=== PATIENT | male | born 1950 | race Caucasian/White ===

== ENCOUNTER 2021-06-12 11:12 | Inpatient (IN) | payer OTHER ==
[~2021-06-12] VITALS: Ht 172.7 cm; Wt 74.8 kg
[2021-06-12] MEDS ORDERED: IV NORMAL SALINE 1000 ML BAG IV ONE (11:45)
[2021-06-12] MEDS ORDERED: ESCI-9 PO (11:54)
[2021-06-12] MEDS ORDERED: FERR325T28 PO (11:54)
[2021-06-12] MEDS ORDERED: CHOL2000 PO (11:54)
[2021-06-12] MEDS ORDERED: ASPI81TA31 PO (11:54)
[2021-06-12] MEDS ORDERED: TAMS-3 PO (11:54)
[2021-06-12] MEDS ORDERED: PROC10TA13 PO (11:54)
[2021-06-12] MEDS ORDERED: LISI20TA30 PO (11:54)
[2021-06-12] MEDS ORDERED: ATOR20TA PO (11:54)
[2021-06-12] MEDS ORDERED: METF-494 PO (11:54)
[2021-06-12] MEDS ORDERED: GLIP5TAB13 PO (11:54)
[2021-06-12] MEDS ORDERED: LEVE500T20 PO (11:54)
[2021-06-12] MEDS ORDERED: METF-440 PO (11:54)
[2021-06-12 12:05] LABS: HEMATOCRIT 28.4 % (36.7-47.1); MEAN CORPUSCULAR HEMOGLOBIN 31.8 uug (23.8-33.4); MEAN CORPUSCULAR VOLUME 94.3 fL (73.0-96.2); PLATELET COUNT (AUTO) 184 K/uL (152-348)
[2021-06-12 12:14] LABS: ETHANOL < 3 MG/DL (0-0)
[2021-06-12 12:18] LABS: ALANINE AMINOTRANSFERASE 14 U/L (16-63); ALKALINE PHOSPHATASE 89 U/L (50-136); ASPARTATE AMINOTRANSFERASE 9 U/L (15-37); BILIRUBIN,DIRECT 0.2 mg/dL (0.0-0.2); BILIRUBIN,TOTAL 0.4 mg/dL (0.2-1.0); CARBON DIOXIDE 25 mmol/L (21-32); CHLORIDE 99 mmol/L (98-107); GLUCOSE 152 mg/dL (74-106); POTASSIUM 5.4 mmol/L (3.5-5.1); TOTAL PROTEIN, SERUM 6.4 g/dL (6.4-8.2)
[2021-06-12 12:20] LABS: ACETAMINOPHEN < 2.0 ug/mL (10-30)
[2021-06-12 12:21] LABS: UREA NITROGEN, BLOOD 101 mg/dL (7-18)
[2021-06-12] MEDS ORDERED: CEFTRIAXONE 1 G in IV DEXTROSE 5% 50 ML IV ONE (12:30)
[2021-06-12] MEDS ORDERED: METRONIDAZOLE 500 MG/NS 100 ML PIGGYBACK IV ONE (12:30)
[2021-06-12] MEDS ORDERED: IV NORMAL SALINE 100 ML BAG IV ONE ×2 (12:30→17:00)
[2021-06-12] MEDS ORDERED: CEFTRIAXONE /D5W 50ML IVPB **ER PYXIS IV ONE (12:43)
[2021-06-12] MEDS ORDERED: METRONIDAZOLE 500 MG/NS 100ML 100 ML IV ONE (12:44)
[2021-06-12 13:02] LABS: THYROID STIMULATING HORMONE 0.337 mIU/mL (0.358-3.740)
--- NOTE | 2021-06-12 13:02 | NUR ---
PT IS IN ROOM #1A. DR PEREZ EVALUATED THE PT.
[2021-06-12 13:27] LABS: *BILIRUBIN,URIN 1+ (NEGATIVE); *BLOOD, URINE 1+ (NEGATIVE); *CLARITY,URINE CLEAR (CLEAR); *COLOR,URINE YELLOW (YELLOW); *KETONES,URINE NEGATIVE (NEGATIVE); *UROBILINOGEN,URINE 0.2 E.U./dl (NORMAL); LEUKOCYTE ESTERASE ,URINE 2+ (NEGATIVE); NITRITE, URINE NEGATIVE (NEGATIVE); UGLUCOSE NEGATIVE (NEGATIVE)
[2021-06-12] MEDS ORDERED: CALCIUM GLUCONATE IV 1 GM in IV DEXTROSE 5% 50 ML IV ONE (13:30)
[2021-06-12] MEDS ORDERED: FUROSEMIDE 20 MG/2 ML VIAL IVP ONE (13:30)
[2021-06-12] MEDS ORDERED: DEXTROSE 50% 50 ML DISP.SYRIN IV ONE ×2 (13:30→17:15)
[2021-06-12] MEDS ORDERED: SODIUM POLYSTYRENE SULFONATE 15 G/60 ML LIQUID UDC PO ONE (13:30)
[2021-06-12] MEDS ORDERED: INSULIN REGULAR, HUMAN 300 UNIT/3 ML VIAL IV ONE (13:30)
[2021-06-12 13:37] LABS: *AMPHETAMINE, URINE NEGATIVE (NEGATIVE); *CANNABINOID, URINE NEGATIVE (NEGATIVE); *COCCAINE, URINE NEGATIVE (NEGATIVE); *OPIATE, URINE NEGATIVE (NEGATIVE); *PHENCYCLIDINE SCREEN,URINE NEGATIVE (NEGATIVE)
[2021-06-12] MEDS ORDERED: CALCIUM GLUCONATE 1 GM/10 ML VIAL IV ONE (13:47)
[2021-06-12] MEDS ORDERED: INSULIN REGULAR, HUMAN 300 UNIT/3 ML VIAL ONE (13:48)
[2021-06-12] MEDS ORDERED: DEXTROSE 50% 50 ML DISP.SYRIN ONE ×2 (13:48→16:58)
[2021-06-12] MEDS ORDERED: FUROSEMIDE 20 MG/2 ML VIAL ONE (13:50)
[2021-06-12] MEDS ORDERED: SODIUM POLYSTYRENE SULFONATE 15 G/60 ML LIQUID UDC ONE (13:50)
[2021-06-12 16:16] LABS: BACTERIA,URINE MODERATE /HPF (NONE SEEN); SQUAMOUS EPITHELIAL CELL,UR FEW /HPF (NONE SEEN); URINE AMORPHOUS URATE MANY /HPF; WBC,URINE TNTC /HPF (0-3)
--- NOTE | 2021-06-12 17:12 | NUR ---
REPORT WAS GIVEN TO DEPARTMENTAL SHIPPING CLERK. PT WAS TRANSFERED TO ROOM #310.
[2021-06-12 18:27] VITALS: BP 107/58
--- NOTE | 2021-06-12 18:27 | NUR ---
Admitted to telemetry dx: ams, sepsis, renal failure. alert and oriented x1. no s/sx of pain. on 2lpm nc, no resp distress. sinus tachy on monitor 104 heart rate. pt kept comfortable. bed low and locked. siderails up. belongings list done. dr. bardales aware.
--- NOTE | 2021-06-12 19:50 | NUR ---
PATIENT ALERT TO NAME, NO SOB NO CHEST PAIN, TELE MONITOR SINUS RHYTHM AT THIS TIME, NO COMPLAIN OF PAIN, TURN AND REPOSITION, KEPT CLEAN AND DRY. CONT TO MONITOR.
[2021-06-12] MEDS ORDERED: ONDANSETRON 4 MG/2 ML VIAL IV PRN (20:00)
[2021-06-12] MEDS ORDERED: ACETAMINOPHEN 650 MG SUPP.RECT RC PRN (20:00)
[2021-06-12] MEDS ORDERED: MORPHINE SULFATE 2 MG/1 ML DISP.SYRIN IV PRN (20:00)
[2021-06-12] MEDS ORDERED: VANCOMYCIN IV 750 MG in IV DEXTROSE 5% 250 ML IV SCH (20:15)
[2021-06-12 20:18] VITALS: BP 100/49
[2021-06-12] MEDS: PIPERACILLIN/TAZO 2.25 G in IV DEXTROSE 5% 50 ML IV SCH (21:10)
[2021-06-12] MEDS ORDERED: LORAZEPAM 2 MG/1 ML VIAL IV PRN (21:15)
[2021-06-12] MEDS: IV D5/ 0.9% NACL 1,000 ML IV PRN (22:39)
[2021-06-13 00:05] VITALS: BP 91/45
[2021-06-13] MEDS: PIPERACILLIN/TAZO 2.25 G in IV DEXTROSE 5% 50 ML IV SCH ×4 (02:57→20:20)
[2021-06-13 04:03] VITALS: BP 107/51
[2021-06-13 06:21] LABS: HEMATOCRIT 23.8 % (36.7-47.1); MEAN CORPUSCULAR HEMOGLOBIN 32.3 uug (23.8-33.4); MEAN CORPUSCULAR VOLUME 92.2 fL (73.0-96.2); PLATELET COUNT (AUTO) 145 K/uL (152-348)
--- NOTE | 2021-06-13 06:27 | NUR ---
PATIENT ASLEEP BUT AROUSABLE, NO SOB NO CHEST PAIN, TELE MONITOR SINUS RHYTHM, REQUEST TOTAL ASSIST WITH ADL'S, KEPT CLEAN AND DRY. KEPT CLEAN AND DRY. CONT TO MONITOR.
[2021-06-13 06:38] LABS: ALANINE AMINOTRANSFERASE 13 U/L (16-63); ALKALINE PHOSPHATASE 77 U/L (50-136); ASPARTATE AMINOTRANSFERASE 10 U/L (15-37); BILIRUBIN,TOTAL 0.3 mg/dL (0.2-1.0); CARBON DIOXIDE 26 mmol/L (21-32); CHLORIDE 109 mmol/L (98-107); CHOLESTEROL 85 mg/dL (<200); CREATININE 3.7 mg/dL (0.6-1.3); GLUCOSE 135 mg/dL (74-106); HDL CHOLESTEROL 31 mg/dL (40-60); MAGNESIUM 1.8 mg/dL (1.8-2.4); PHOSPHOROUS 3.6 mg/dL (2.5-4.9); POTASSIUM 4.6 mmol/L (3.5-5.1); TOTAL PROTEIN, SERUM 5.4 g/dL (6.4-8.2); TRIGLYCERIDES 105 MG/DL (30-150); UREA NITROGEN, BLOOD 69 mg/dL (7-18)
--- NOTE | 2021-06-13 07:56 | NUR ---
received awake. no acute distress. on 2lpm nc tolerated. no sob. iv intact fluids ongoing. sinus rhythm on tele monitor. safety measures ongoing. kept comfortable. call light in reach.
[2021-06-13] MEDS: PANTOPRAZOLE SODIUM 40 MG VIAL IV SCH (08:15)
--- NOTE | 2021-06-13 08:37 | NUR ---
spoke with some david and given update. per son, pt is dnr/dni and will fax over paperwork. charge nurse aware.
[2021-06-13] MEDS ORDERED: levETIRAcetam IV 500 MG in IV DEXTROSE 5% 100 ML IV SCH (09:00)
[2021-06-13 10:27] LABS: THYROID STIMULATING HORMONE 0.195 mIU/mL (0.358-3.740)
[2021-06-13] MEDS ORDERED: VANCOMYCIN IV 750 MG in IV DEXTROSE 5% 250 ML IV ONE (10:30)
[2021-06-13 11:46] VITALS: BP 111/48
[2021-06-13] MEDS ORDERED: Z GUARD REMEDY PASTE 57 GM TUBE TOP PRN (12:45)
--- NOTE | 2021-06-13 12:45 | NUR ---
WOUND CARE CONSULT: PT PRESENTS WITH SACRAL INTACT DEEP TISSUE INJURY, PRESENT ON ADMISSION. RECOMMENDATIONS MADE FOR SKIN PROTECTION. DISCUSSED WITH NURSING STAFF. PT IS INCONTINENT. IN AGREEMENT WITH PLAN OF CARE. Addendum: 06/13/21 at 1246 by CATA STALLINGS RN Amended: Links added.
[2021-06-13] MEDS: IV D5/ 0.9% NACL 1,000 ML IV PRN (14:33)
[2021-06-13 15:38] VITALS: BP 100/53
[2021-06-13] MEDS ORDERED: INSU100V28 (15:44)
--- NOTE | 2021-06-13 18:56 | NUR ---
awake and responsive. no acute distress. iv fluids tolerated. no seizures noted. on iv atb no adverse/allergic reaction noted. needs attended. kept comfortable. safety measures in place.
--- NOTE | 2021-06-13 19:30 | NUR ---
Receive patient lying in bed. AAOx1. In no acute distress. Denies any pain or SOB. O2 sat at 99% on RA. NSR on tele at 80/min. Iv site on right FA and left hand intact and patent. IVF infusing. Needs assessed and attended to. Safety measure initiated and call gold within reached.
[2021-06-13 20:05] VITALS: BP 116/35
[2021-06-13] MEDS: levETIRAcetam 500 MG TABLET PO SCH (20:20)
[2021-06-13] MEDS: TAMSULOSIN HCL 0.4 MG CAP.SR.24H PO SCH (20:20)
[2021-06-13] MEDS: Z GUARD REMEDY PASTE 57 GM TUBE TOP SCH (20:21)
[2021-06-14] VITALS: BP 116/59
[2021-06-14] MEDS: PIPERACILLIN/TAZO 2.25 G in IV DEXTROSE 5% 50 ML IV SCH ×2 (02:07→08:03)
[2021-06-14 04:10] VITALS: BP 117/57
[2021-06-14] MEDS: IV D5/ 0.9% NACL 1,000 ML IV PRN ×2 (05:11→23:41)
[2021-06-14 06:25] LABS: HEMATOCRIT 24.2 % (36.7-47.1); MEAN CORPUSCULAR HEMOGLOBIN 33.1 uug (23.8-33.4); MEAN CORPUSCULAR VOLUME 92.2 fL (73.0-96.2); PLATELET COUNT (AUTO) 141 K/uL (152-348)
--- NOTE | 2021-06-14 06:39 | NUR ---
AAOx1. Calm and comfortable. Denies any pain or SOB. O2 sat at 99% on RA. NSR on tele at 75/min. IV site on right FA intact and patent. IVF infusing. Needs attended to and met. Safety measure maintained and call gold within reached.
[2021-06-14] MEDS: glipiZIDE 5 MG TABLET PO SCH ×2 (06:46→16:23)
[2021-06-14 07:08] LABS: THYROID STIMULATING HORMONE 0.233 mIU/mL (0.358-3.740)
[2021-06-14 07:16] LABS: ALANINE AMINOTRANSFERASE 7 U/L (16-63); ALKALINE PHOSPHATASE 68 U/L (50-136); ASPARTATE AMINOTRANSFERASE 11 U/L (15-37); BILIRUBIN,TOTAL 0.6 mg/dL (0.2-1.0); CARBON DIOXIDE 27 mmol/L (21-32); CHLORIDE 108 mmol/L (98-107); CREATININE 1.9 mg/dL (0.6-1.3); GLUCOSE 171 mg/dL (74-106); MAGNESIUM 1.5 mg/dL (1.8-2.4); PHOSPHOROUS 2.4 mg/dL (2.5-4.9); POTASSIUM 4.3 mmol/L (3.5-5.1); TOTAL PROTEIN, SERUM 5.6 g/dL (6.4-8.2); UREA NITROGEN, BLOOD 31 mg/dL (7-18)
[2021-06-14] MEDS: levETIRAcetam 500 MG TABLET PO SCH ×2 (08:02→20:03)
[2021-06-14] MEDS: PANTOPRAZOLE SODIUM 40 MG VIAL IV SCH (08:02)
[2021-06-14] MEDS: Z GUARD REMEDY PASTE 57 GM TUBE TOP SCH ×2 (08:05→20:11)
[2021-06-14] MEDS ORDERED: NEUTRA PHOS PACKET PO ONE (09:00)
[2021-06-14] MEDS: MAGNESIUM SULFATE/D5W 100 ML IV SCH ×2 (09:53→11:39)
[2021-06-14] MEDS ORDERED: VANCOMYCIN IV 1,000 MG in IV DEXTROSE 5% 250 ML IV SCH (11:00)
[2021-06-14 11:24] VITALS: BP 111/44
[2021-06-14] MEDS ORDERED: PIPERACILLIN SODIUM/TAZOBACTAM 3.375 G in IV DEXTROSE 5% 50 ML IV SCH (15:00)
[2021-06-14 15:39] VITALS: BP 118/52
--- NOTE | 2021-06-14 18:21 | NUR ---
Patient resting in bed. AOx1, self. On room air. No signs of acute distress. NSR on threat monitoring analyst. Patient denies pain/ discomfort. Compliant with medications and care. Call light within reach. Bed alarm on. Will endorse to incoming shift for continuity of care.
[2021-06-14] MEDS: TAMSULOSIN HCL 0.4 MG CAP.SR.24H PO SCH (20:03)
[2021-06-14 20:20] VITALS: BP 125/52
[2021-06-15 00:05] VITALS: BP 123/42
[2021-06-15 03:22] LABS: *OCCULT BLOOD STOOL NEGATIVE (NEGATIVE)
[2021-06-15 04:25] VITALS: BP 116/42
--- NOTE | 2021-06-15 04:57 | NUR ---
Pt slept intermittently throughout the night. Denies pain or SOB. Had bowel movement X 1, sent to lab for stool OB. IV site patent. Safety and comfort provided. No other issues or concerns at this time, will endorse to day shift.
[2021-06-15 06:42] LABS: HEMATOCRIT 24.3 % (36.7-47.1); PLATELET COUNT (AUTO) 138 K/uL (152-348)
[2021-06-15] MEDS: PANTOPRAZOLE SODIUM 40 MG TABLET.DR PO SCH (06:47)
[2021-06-15] MEDS: glipiZIDE 5 MG TABLET PO SCH ×2 (06:47→15:40)
[2021-06-15 06:54] LABS: CREATININE 1.2 mg/dL (0.6-1.3); MAGNESIUM 1.6 mg/dL (1.8-2.4)
[2021-06-15 08:30] VITALS: BP 118/51
[2021-06-15] MEDS: Z GUARD REMEDY PASTE 57 GM TUBE TOP SCH ×2 (10:00→20:31)
[2021-06-15] MEDS ORDERED: MAGNESIUM OXIDE 400 MG TABLET PO ONE (10:00)
[2021-06-15] MEDS: GLUCERNA SHAKE 237 ML CAN PO SCH (10:00)
[2021-06-15] MEDS: levETIRAcetam 500 MG TABLET PO SCH ×2 (10:13→20:30)
[2021-06-15 11:10] VITALS: BP 118/51
[2021-06-15] MEDS: MUPIROCIN 2% OINT 22 GM TUBE NS SCH ×2 (15:11→20:30)
[2021-06-15 15:17] VITALS: BP 126/57
[2021-06-15] MEDS ORDERED: NEUTRA PHOS PACKET PO ONE (15:45)
[2021-06-15] MEDS: IV D5/ 0.9% NACL 1,000 ML IV PRN (15:53)
--- NOTE | 2021-06-15 18:25 | NUR ---
Pt stable throughout the shift. Mentation is improved. No s/s of acute distress. Pt has improved and increased PO intake. Wound care done per ordered. Repositioned for comfort. Vitals WNL on room air. Safety measures in place. Fall and seizure precaution maintained. Chart checks done. Will endorse to oncoming nurse.
[2021-06-15 20:27] VITALS: BP 143/62
[2021-06-15] MEDS: TAMSULOSIN HCL 0.4 MG CAP.SR.24H PO SCH (20:30)
[2021-06-16] VITALS: BP 133/56
[2021-06-16] MEDS: PANTOPRAZOLE SODIUM 40 MG TABLET.DR PO SCH (06:09)
--- NOTE | 2021-06-16 07:50 | NUR ---
Received patient resting in bed. AOx1. No signs of acute distress. Patient is on room air, denies SOB or discomfort Normal Sinus Rhythm on quality assurance monitor. IV on right wrist is patent and intact. Due medications were given and tolerated well. Safety and comfort measures maintained. Call light within reach.Will continue to monitor.
[2021-06-16] MEDS: glipiZIDE 5 MG TABLET PO SCH ×2 (08:54→16:11)
[2021-06-16] MEDS: levETIRAcetam 500 MG TABLET PO SCH (08:54)
[2021-06-16] MEDS: MUPIROCIN 2% OINT 22 GM TUBE NS SCH (08:57)
[2021-06-16] MEDS: GLUCERNA SHAKE 237 ML CAN PO SCH (08:58)
[2021-06-16] MEDS: Z GUARD REMEDY PASTE 57 GM TUBE TOP SCH (08:58)
[2021-06-16] MEDS ORDERED: MAGNESIUM SULFATE/D5W 100 ML IV SCH (11:15)
[2021-06-16 12:00] VITALS: BP 111/51
--- NOTE | 2021-06-16 12:00 | NUR ---
NO ACUTE CHANGE FROM AM ASSESSMENT
--- NOTE | 2021-06-16 15:00 | NUR ---
SEEN BY DR ESPINOZA FOR FOLLOW-UP, SPOKE WITH SON AT BEDSIDE AND SAID OKAY TO GO BACK TO [facility]ARE. [employer] NOTIFIED AND SAID PATIENT WILL BE PICK-UP AT 8PM PER FACILITY'S REQUEST. PATIENT WILL BE PICK-UP AT 8PM VIA AMBULANCE
[2021-06-16] MEDS ORDERED: NUT.237L36 PO (15:24)
[2021-06-16] MEDS ORDERED: MUPI22OI2 NS (15:24)
[2021-06-16] MEDS ORDERED: LEVE500T9 PO (15:24)
[2021-06-16] MEDS ORDERED: TAMS-3 PO (15:24)
[2021-06-16] MEDS ORDERED: ASPI-618 PO (15:24)
[2021-06-16] MEDS ORDERED: LISI-782 PO (15:24)
[2021-06-16 16:00] VITALS: BP 105/51
--- NOTE | 2021-06-16 19:40 | NUR ---
PATIENT PICKED UP BY [facility] AMBULANCE AND TAKEN BACK TO [facility]. PATIENT LEFT FACILITY IN STABLE CONDITION. VSS WNL. REPORT GIVEN TO AMBULANCE TRANSPORT. ALL NEEDS ATTENDED, WILL CONTINUE TO MONITOR AND ASSESS.
== END 2021-06-16 19:35 | DRG 871 ==
LOC: ER 11:12 → TELE3 16:46
PROVIDERS: ADMIT Internal Medicine; ATTEND Internal Medicine
DX: A41.9 Sepsis, unspecified organism (principal); G92 Toxic encephalopathy; N17.0 Acute kidney failure with tubular necrosis; E43 Unspecified severe protein-calorie malnutrition; N39.0 Urinary tract infection, site not specified; D68.59 Other primary thrombophilia; R57.9 Shock, unspecified; G91.2 (Idiopathic) normal pressure hydrocephalus; E87.5 Hyperkalemia; E11.42 Type 2 diabetes mellitus with diabetic polyneuropathy; E11.22 Type 2 diabetes mellitus with diabetic chronic kidney disease; E78.5 Hyperlipidemia, unspecified; F03.90 Unspecified dementia, unspecified severity, without behavioral disturbance, psychotic disturbance, mood disturbance, and anxiety; G40.909 Epilepsy, unspecified, not intractable, without status epilepticus; Z79.82 Long term (current) use of aspirin; Z86.16 Personal history of COVID-19; Z87.891 Personal history of nicotine dependence; N18.9 Chronic kidney disease, unspecified; Z74.09 Other reduced mobility; F32.9 Major depressive disorder, single episode, unspecified; F41.9 Anxiety disorder, unspecified; Z68.25 Body mass index [BMI] 25.0-25.9, adult; E11.51 Type 2 diabetes mellitus with diabetic peripheral angiopathy without gangrene; Z20.822 Contact with and (suspected) exposure to COVID-19; Z66 Do not resuscitate; Z79.84 Long term (current) use of oral hypoglycemic drugs
CPT/HCPCS: 36415; 70030-TC; 70450; 71045; 83605; 83735; 84100; 84443; 85025; 85610; 85730; 86850; 86900; 86901; 87040; 87086; 97161; A4663; A6209; C1758; C9113; G0378; G0480; J0610; J0696; J1815; J1940; J1953; J2543; J3370; J3475; J3490; J7030; J7042; J7060; J7070